=== PATIENT | male | born 1945 ===

== ENCOUNTER 2021-01-02 08:27 | Inpatient (IN) ==
[2021-01-02] MEDS ORDERED: NS 0.9% 1000 ml BAG 1,000 ML IV ONE (08:39)
[2021-01-02 09:04] LABS: Hematocrit 38 % (42-52); Hemoglobin 12.6 g/dL (14.0-18.0); Mean Corpuscular HGB Conc 34 g/dL (31-36); Mean Corpuscular Hemoglobin 33 pg (27-31); Mean Corpuscular Volume 99 fL (80-94); Platelet Count 186 10^3/uL (150-450); Red Cell Distribution Width 13 % (10-15); White Blood Count 48.7 10^3/uL (3.5-10.8)
[2021-01-02 09:24] LABS: ALT 21 U/L (7-52); AST 16 U/L (13-39); Albumin 3.1 g/dL (3.2-5.2); Albumin/Globulin Ratio 0.9 (1-3); Alkaline Phosphatase 82 U/L (35-149); Anion Gap 14 mmol/L (2-11); Blood Urea Nitrogen 49 mg/dL (6-24); CO2 Carbon Dioxide 23 mmol/L (22-32); Calcium 8.8 mg/dL (8.6-10.3); Chloride 103 mmol/L (101-111); EGFR African American 17.4 (>60); EGFR Non-African American 14.4 (>60); Globulin 3.5 g/dL (2-4); Glucose 125 mg/dL (70-100); Magnesium 1.4 mg/dL (1.9-2.7); Potassium 4.6 mmol/L (3.5-5.0); Sodium 140 mmol/L (135-145); Total Protein 6.6 g/dL (6.4-8.9)
[2021-01-02] MEDS ORDERED: Piperacillin/Tazobac ADVAN 3.375 GM in NS 0.9% 100 ml BAG 100 ML IVPB ONE (09:56)
[2021-01-02 09:57] LABS: TSH Ultra Thyroid Stim Horm 4.17 mcIU/mL (0.34-5.60)
[2021-01-02] MEDS ORDERED: Lactated Ringers 1000 ml BAG 1,000 ML IV ONE ×3 (10:03→11:39)
[2021-01-02 10:14] LABS: Troponin I 0.03 ng/mL (<0.03)
[2021-01-02 10:32] LABS: RBC Morphology Normal (Normal)
[2021-01-02 10:33] LABS: ABS Lymphocytes 0.5 10^3/ul (1.0-4.8); ABS Monocytes 2.9 10^3/ul (0-0.8); ABS Neutrophils 45.2 10^3/ul (1.5-7.7); Lymphocyte % 1.1 %
[2021-01-02 11:25] LABS: Urine Appearance Cloudy; Urine Bilirubin Negative (Negative); Urine Blood 2+ (Negative); Urine Color Yellow; Urine Glucose Negative (Negative); Urine Ketones Negative (Negative); Urine Nitrite Positive (Negative); Urine Protein 2+(100 mg/dL) (Negative); Urine Specific Gravity 1.009 (1.002-1.030); Urine Urobilinogen Negative (Negative)
[2021-01-02] MEDS ORDERED: Magnesium Sulfate IV 3 GM in NS 0.9% 100 ml BAG 100 ML IVPB ONE (11:29)
[2021-01-02 11:30] LABS: Urine Bacteria 1+ (Absent); Urine Red Blood Cell 2+(6-10/hpf) (Absent); Urine White Blood Cell 3+(>20/hpf) (Absent)
[2021-01-02] MEDS ORDERED: NS 0.9% 100 ml BAG 100 ML ONE (12:19)
[2021-01-02 12:30] LABS: Rapid COVID-19 Molecular Undetected (Undetected)
[2021-01-02] MEDS ORDERED: Lactated Ringers 1000 ml BAG 1,000 ML IV SCH ×2 (13:00→14:15)
[2021-01-02] MEDS ORDERED: Norepinephrine 16MCG/ML IVPRE 4,000 MCG/250 ML BAG IV SCH ×2 (13:00)
[2021-01-02 14:14] LABS: Phosphorus 4.2 mg/dL (2.5-5.0)
[2021-01-02] MEDS ORDERED: Heparin DRIP 25,000 UNITS BAG 25,000 UNITS/500 ML BAG IV SCH (14:30)
[2021-01-02 14:39] LABS: Anion Gap 7 mmol/L (2-11); Blood Urea Nitrogen 47 mg/dL (6-24); CO2 Carbon Dioxide 24 mmol/L (22-32); Calcium 8.1 mg/dL (8.6-10.3); Chloride 108 mmol/L (101-111); EGFR African American 22.5 (>60); EGFR Non-African American 18.6 (>60); Glucose 107 mg/dL (70-100); Potassium 4.4 mmol/L (3.5-5.0); Sodium 139 mmol/L (135-145)
[2021-01-02 14:44] LABS: Troponin I 0.04 ng/mL (<0.03)
[2021-01-02 14:48] LABS: Activated Partial Thrombo Time 35.3 seconds (26.0-38.0); INR 1.84 (0.86-1.15)
[2021-01-02] MEDS ORDERED: Heparin 5000 UNITS/ML 1 mL VIAL IV SCH (15:00)
[2021-01-02] MEDS: cefTRIAXone 1 gm/50 mL NS BAG 1 GM/50 ML BAG IVPB SCH (18:00)
[2021-01-02] MEDS: Lactated Ringers 1000 ml BAG 1,000 ML IV SCH (19:05)
[2021-01-02] MEDS: Famotidine IV 10 MG/ML 2 ml VIAL (20 mg) IV SLOW PU SCH (19:37)
[2021-01-03 04:37] LABS: Hematocrit 36 % (42-52); Hemoglobin 11.7 g/dL (14.0-18.0); Mean Corpuscular HGB Conc 33 g/dL (31-36); Mean Corpuscular Hemoglobin 32 pg (27-31); Mean Corpuscular Volume 99 fL (80-94); Mean Platelet Volume 9.1 fL (7.4-10.4); Platelet Count 116 10^3/uL (150-450); Red Blood Count 3.63 10^6 /uL (4.18-5.48); Red Cell Distribution Width 14 % (10-15); White Blood Count 34.4 10^3/uL (3.5-10.8)
[2021-01-03 04:47] LABS: Calcium 7.8 mg/dL (8.6-10.3); EGFR African American 35.9 (>60); EGFR Non-African American 29.6 (>60); Magnesium 2.3 mg/dL (1.9-2.7); Potassium 3.7 mmol/L (3.5-5.0)
[2021-01-03] MEDS: Lactated Ringers 1000 ml BAG 1,000 ML IV SCH (08:41)
[2021-01-03] MEDS: Levothyroxine 100 MCG/5 ML VIAL IV SCH (10:08)
[2021-01-03] MEDS: Enoxaparin 80 MG/0.8 ML SYR SUBCUT SCH (10:09)
[2021-01-03] MEDS: cefTRIAXone 1 gm/50 mL NS BAG 1 GM/50 ML BAG IVPB SCH (10:09)
[2021-01-03] MEDS ORDERED: Lactated Ringers 1000 ml BAG 1,000 ML IV SCH (10:19)
[2021-01-03] MEDS ORDERED: EPINEPHrine,Rac 2.25% NEB.SOL 0.5 ML ONE (11:19)
[2021-01-03] MEDS: Famotidine IV 10 MG/ML 2 ml VIAL (20 mg) IV SLOW PU SCH (20:55)
[2021-01-04] MEDS: Levothyroxine 100 MCG/5 ML VIAL IV SCH (05:23)
[2021-01-04 06:35] LABS: Hematocrit 36 % (42-52); Hemoglobin 11.9 g/dL (14.0-18.0); Mean Corpuscular HGB Conc 33 g/dL (31-36); Mean Corpuscular Hemoglobin 33 pg (27-31); Mean Corpuscular Volume 99 fL (80-94); Red Blood Count 3.65 10^6 /uL (4.18-5.48); Red Cell Distribution Width 14 % (10-15); White Blood Count 23.7 10^3/uL (3.5-10.8)
[2021-01-04 06:49] LABS: Mean Platelet Volume 9.4 fL (7.4-10.4); Platelet Count 79 10^3/uL (150-450)
[2021-01-04 06:52] LABS: Calcium 8.1 mg/dL (8.6-10.3); EGFR African American 62.3 (>60); EGFR Non-African American 51.5 (>60); Magnesium 2.4 mg/dL (1.9-2.7); Potassium 3.4 mmol/L (3.5-5.0)
[2021-01-04] MEDS: Enoxaparin 80 MG/0.8 ML SYR SUBCUT SCH (09:07)
[2021-01-04] MEDS: cefTRIAXone 1 gm/50 mL NS BAG 1 GM/50 ML BAG IVPB SCH (09:07)
[2021-01-04] MEDS: Famotidine IV 10 MG/ML 2 ml VIAL (20 mg) IV SLOW PU SCH (20:18)
[2021-01-05 04:17] LABS: ABS Eosinophils 0.2 10^3/ul (0-0.6); ABS Lymphocytes 0.7 10^3/ul (1.0-4.8); ABS Monocytes 1.1 10^3/ul (0-0.8); ABS Neutrophils 15.4 10^3/ul (1.5-7.7); Eosinophil % 1.2 %; Hematocrit 35 % (42-52); Hemoglobin 11.8 g/dL (14.0-18.0); Lymphocyte % 3.9 %; Mean Corpuscular HGB Conc 34 g/dL (31-36); Mean Corpuscular Hemoglobin 33 pg (27-31); Mean Corpuscular Volume 97 fL (80-94); Mean Platelet Volume 9.7 fL (7.4-10.4); Platelet Count 85 10^3/uL (150-450); Red Cell Distribution Width 14 % (10-15); White Blood Count 17.4 10^3/uL (3.5-10.8)
[2021-01-05 04:27] LABS: Calcium 8.1 mg/dL (8.6-10.3); EGFR African American 70.7 (>60); EGFR Non-African American 58.5 (>60); Potassium 3.2 mmol/L (3.5-5.0)
[2021-01-05] MEDS: Levothyroxine 100 MCG/5 ML VIAL IV SCH (05:30)
[2021-01-05] MEDS ORDERED: Potassium Chlor 20 meq TAB.ER PO ONE (07:08)
[2021-01-05] MEDS: cefTRIAXone 1 gm/50 mL NS BAG 1 GM/50 ML BAG IVPB SCH (08:56)
[2021-01-05] MEDS ORDERED: Perflutren Lipid Microsphere 3 ML VIAL ONE (10:47)
[2021-01-05] MEDS: Famotidine IV 10 MG/ML 2 ml VIAL (20 mg) IV SLOW PU SCH (19:55)
[2021-01-06] MEDS: Levothyroxine 100 MCG/5 ML VIAL IV SCH (05:30)
[2021-01-06 06:53] LABS: EGFR African American 83.3 (>60); EGFR Non-African American 68.9 (>60); Magnesium 1.8 mg/dL (1.9-2.7); Potassium 3.3 mmol/L (3.5-5.0)
[2021-01-06 07:02] LABS: Hematocrit 36 % (42-52); Hemoglobin 12.3 g/dL (14.0-18.0); Mean Corpuscular HGB Conc 34 g/dL (31-36); Mean Corpuscular Hemoglobin 33 pg (27-31); Mean Corpuscular Volume 98 fL (80-94); Mean Platelet Volume 9.5 fL (7.4-10.4); Platelet Count 72 10^3/uL (150-450); Red Blood Count 3.72 10^6 /uL (4.18-5.48); Red Cell Distribution Width 14 % (10-15)
[2021-01-06] MEDS ORDERED: Potassium Chlor 20 meq TAB.ER PO ONE (09:23)
[2021-01-06] MEDS: cefTRIAXone 1 gm/50 mL NS BAG 1 GM/50 ML BAG IVPB SCH (10:09)
[2021-01-06] MEDS: Famotidine IV 10 MG/ML 2 ml VIAL (20 mg) IV SLOW PU SCH (21:50)
[2021-01-07] MEDS: Levothyroxine 100 MCG/5 ML VIAL IV SCH (06:46)
[2021-01-07] MEDS: cefTRIAXone 1 gm/50 mL NS BAG 1 GM/50 ML BAG IVPB SCH (11:02)
[2021-01-07] MEDS ORDERED: Magnesium Sulfate 2 gm BAG 2 GM/50 ML BAG IVPB ONE (19:12)
[2021-01-07] MEDS: Famotidine IV 10 MG/ML 2 ml VIAL (20 mg) IV SLOW PU SCH (21:15)
[2021-01-08 05:06] LABS: Hematocrit 36 % (42-52); Hemoglobin 12.4 g/dL (14.0-18.0); Mean Corpuscular HGB Conc 35 g/dL (31-36); Mean Corpuscular Hemoglobin 33 pg (27-31); Mean Corpuscular Volume 97 fL (80-94); Mean Platelet Volume 9.5 fL (7.4-10.4); Platelet Count 98 10^3/uL (150-450); Red Blood Count 3.71 10^6 /uL (4.18-5.48); Red Cell Distribution Width 14 % (10-15); White Blood Count 9.6 10^3/uL (3.5-10.8)
[2021-01-08] MEDS: Levothyroxine 100 MCG/5 ML VIAL IV SCH (05:11)
[2021-01-08 05:12] LABS: Calcium 8.1 mg/dL (8.6-10.3); Magnesium 1.7 mg/dL (1.9-2.7); Potassium 3.3 mmol/L (3.5-5.0)
[2021-01-08 05:18] LABS: EGFR African American 91.3 (>60); EGFR Non-African American 75.5 (>60)
[2021-01-08] MEDS ORDERED: Potassium Chlor 20 meq TAB.ER PO ONE (07:06)
[2021-01-08] MEDS ORDERED: Magnesium Sulfate 2 gm BAG 2 GM/50 ML BAG IVPB ONE (07:06)
[2021-01-08] MEDS: cefTRIAXone 1 gm/50 mL NS BAG 1 GM/50 ML BAG IVPB SCH (11:00)
[2021-01-09] MEDS: Levothyroxine 100 MCG/5 ML VIAL IV SCH (05:07)
[2021-01-09] MEDS: cefTRIAXone 1 gm/50 mL NS BAG 1 GM/50 ML BAG IVPB SCH (10:21)
[2021-01-10] MEDS: Levothyroxine 100 MCG/5 ML VIAL IV SCH (05:06)
[2021-01-10] MEDS: cefTRIAXone 1 gm/50 mL NS BAG 1 GM/50 ML BAG IVPB SCH (09:29)
[2021-01-11] MEDS: Levothyroxine 100 MCG/5 ML VIAL IV SCH (05:17)
[2021-01-11] MEDS: cefTRIAXone 1 gm/50 mL NS BAG 1 GM/50 ML BAG IVPB SCH (08:42)
[2021-01-11 12:27] LABS: Hematocrit 37 % (42-52); Hemoglobin 12.1 g/dL (14.0-18.0); Mean Corpuscular HGB Conc 33 g/dL (31-36); Mean Corpuscular Hemoglobin 32 pg (27-31); Mean Corpuscular Volume 97 fL (80-94); Mean Platelet Volume 8.6 fL (7.4-10.4); Platelet Count 245 10^3/uL (150-450); Red Blood Count 3.76 10^6 /uL (4.18-5.48); Red Cell Distribution Width 14 % (10-15); White Blood Count 15.1 10^3/uL (3.5-10.8)
[2021-01-11 12:44] LABS: Calcium 8.6 mg/dL (8.6-10.3); EGFR African American 87.1 (>60); Potassium 3.9 mmol/L (3.5-5.0)
[2021-01-11 13:26] LABS: ABS Basophils 0.1 10^3/ul (0-0.2); ABS Eosinophils 0.4 10^3/ul (0-0.6); ABS Monocytes 1.6 10^3/ul (0-0.8); Eosinophil % 2.6 %; Large Platelets Present; Lymphocyte % 6.5 %
[2021-01-11] MEDS ORDERED: Magnesium Hydroxide LIQ 30 ML UDC PO PRN (16:40)
[2021-01-12] MEDS: cefTRIAXone 1 gm/50 mL NS BAG 1 GM/50 ML BAG IVPB SCH (08:23)
[2021-01-12] MEDS ORDERED: Cholecalciferol (VIT D3) 1,000 unit TAB PO SCH (09:00)
[2021-01-12 12:16] VITALS: BP 113/61
[2021-01-12 12:17] LABS: Rapid COVID-19 Molecular Undetected (Undetected)
== END 2021-01-12 14:30 | DRG 871 ==
LOC: ED 08:27 → SUATTDRO 11:20 → ICU 11:20 → MEDTELE 01-03 18:29
PROVIDERS: ADMIT Internal Medicine; ATTEND Internal Medicine